=== PATIENT | female | born 1985 | race Two or more races ===

== ENCOUNTER 2018-06-21 01:44 | Emergency (ER) | payer OTHER ==
[~2018-06-21] VITALS: Ht 154.9 cm; Wt 64.9 kg
[2018-06-21 01:56] VITALS: BP 117/76
[2018-06-21] MEDS ORDERED: predniSONE 10 MG TABLET ONE (02:04)
[2018-06-21] MEDS ORDERED: diphenhydrAMINE HCL 50 MG/ML VIAL ONE (02:04)
[2018-06-21] MEDS ORDERED: predniSONE 20 MG TABLET ONE (02:04)
[2018-06-21] MEDS: diphenhydrAMINE HCL 50 MG/ML VIAL IM ONE (02:31)
[2018-06-21] MEDS: predniSONE 20 MG TABLET PO ONE (02:31)
== END 2018-06-21 02:33 | disposition home or self-care (01) ==
LOC: ER 01:44
DX: O99.712 Diseases of the skin and subcutaneous tissue complicating pregnancy, second trimester (principal); L50.0 Allergic urticaria; Z3A.19 19 weeks gestation of pregnancy
CPT/HCPCS: A4606; J1200; Z7610